=== PATIENT | male | born 1995 | race Caucasian/White ===

== ENCOUNTER 2023-09-22 09:59 | Outpatient (AMB) | payer OTHER, SELFPAY ==
[2023-09-22 10:22] VITALS: BP 116/62; PULSE 75; O2SAT 99; BMI 39.5
--- NOTE | 2023-09-22 10:22 | A.OFFPC_ITS ---
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 Anxiety - Denies current sxs SurgHx: L wrist surgery. FHx: Mom: Ovarian CA, Liver CA. Dad: DM, HTN SocHx: Nonsmoker. EtOH 1 drink per day. 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 1. Little interest or pleasure in doing things: not at all 2. Feeling down, depressed, or hopeless: not at all 3. Trouble falling or staying asleep, or sleeping too much: not at all 4. Feeling tired or having little energy: not at all 5. Poor appetite or overeating: not at all 6. Feeling bad about yourself - or that you are a failure or have let yourself or your family down: not at all 7. Trouble concentrating on things, such as reading the newspaper or watching television: not at all 8. Moving or speaking so slowly that other people could have noticed. Or the opposite - being so fidgety or restless that you have been moving around a lot more than usual: not at all 9. Thoughts that you would be better off or of hurting yourself in some wa y: not at all Total score: 0 Depression Screening Interpretation: Negative Depression Screening Done: Yes 46287 - PHQ-9 Billing: Yes Source: Developed by Drs. Cameron Lebron, Avril Schulz, Kan Arroyo and colleagues, with an educational odalys from [employer]. Thrive Questionnaire Date Thrive assessed: 09/22/23 I am a: Patient What is your living situation today?: I have a steady place to live Within the past 12 months, did the food you bought not last and you didn't have the money to get more?: Never true Within the past 12 months, did you worry whether your food would run out before you got money to buy more?: Never true Do you have trouble paying for medicines?: No Do you have trouble getting transportation to medical appointments?: No Do you have trouble paying your heating and electricity bill?: No Do you have trouble taking care of your child, family member or friend?: No Do you have trouble with day-to-day activities such as bathing, preparing meals, shopping, managing finances, etc.?: No Are you currently unemployed and looking for a job?: No Are you interested in more education?: No THRIVE Score: 0 AUDIT C Alcohol Use Questionnaire (AUDIT-C) 1. How often do you have a drink containing alcohol?: 4 or more times a week 2. How many drinks containing alcohol do you have on a typical day when you are drinking?: 1 or 2 3. How often do you have six or more drinks on one occasion?: Less than monthly Total Score: 5 CÉSAR-7 AMB Questionnaire CÉSAR-7 Date CÉSAR - 7 assessed: 09/22/23 Feeling nervous, anxious, or on edge: 0 = Not at all Not being able to stop or control worryin = Not at all Worrying too much about different things: 0 = Not at all Trouble relaxin = Not at all Being so restless that it is hard to sit still: 0 = Not at all Becoming easily annoyed or irritable: 0 = Not at all Feeling afraid as if something awful might happen: 0 = Not at all Total CÉSAR-7 score (0-4 normal; 5-9 mild; 10-14 moderate; 15-21 severe): 0 Source: Developed by Drs. Cameron Lebron, Avril Schulz, Kan Arroyo and colleagues, with an educational odalys from [employer]. CÉSAR-7 Assessment Billing CÉSAR-7 Assessment Tool: CÉSAR-7 Assessment 29413 Review of Systems Const Denies chills, Denies fatigue, Denies fever(s), Denies headache(s) and Denies weakness ENT Denies dizziness and Denies headache(s) Card Denies chest pain, Denies lightheadedness, Denies dyspnea and Denies other (Palpitations) Resp Denies cough, Denies dyspnea, Denies wheezing and Denies other ( shortness of breath) Musc Denies numbness and Denies tingling Neuro Denies dizziness, Denies headache(s), Denies numbness, Denies tingling, Denies paresthesias and Denies weakness Psych Denies anxiety and Denies depression Endo Denies fatigue Aller/Immun Denies wheezing Physical exam (Primary Care) Vital Signs: Last Vital Signs Pulse 75 09/22/23 10:22 BP 116/62 09/22/23 10:22 Pulse Ox 99 09/22/23 10:22 Oxygen Delivery Method Room Air 09/22/23 10:22 BMI result Body Mass Index 39.5 Tobacco/Smoking Status: Tobacco use Status Tobacco use date assessed 09/22/23 09/22/23 10:38 Patient Tobacco Use Status Never used Tobacco 09/22/23 10:38 e-Cigarette/Vaping Use Never Used 09/22/23 10:38 PHQ-9: PHQ-9 Score PHQ-9: Total score 0 09/22/23 11:11 Depression Screening Interpretation: Negative Thrive Assessment: Date of Thrive Assessment Date Thrive assessed 09/22/23 09/22/23 10:38 Const General: no acute distress and well developed Nutritional Appearance: well nourished Orientation/consciousness: patient oriented x3 HENMT Head: Yes normocephalic and Yes atraumatic Eyes General: appearance normal, both eyes and all related structures Pupils: Equal, round and reactive pupils present EOM: EOMs intact bilaterally Resp Effort & Inspection: normal respiratory effort Auscultation: clear to auscultation bilaterally Cardio Rate: regular rate Rhythm: regular rhythm Heart sounds: S1 normal heart sound present, S2 normal heart sound present, no gallops, no murmurs and no rubs Neuro General: patient oriented x3 and gait normal Cranial nerves: Yes Equal, round and reactive pupils present Psych Affect: normal affect Assessment and Plan Assessment & Plan (1) Pelvic pain in male: Code(s): R10.2 - Pelvic and perineal pain Plan: Pelvic?pain?with?numbness?of?genitals Unclear?cause. Patient?recounts?workup?including?an?MRI?in?[facility]?[place]. I?do?not?have?his?prior?records?yet. Will?refer?him?to?Urology (2) Depression with anxiety: Code(s): F41.8 - Other specified anxiety disorders Plan: History?of?anxiety?and?depression.??He?denies?current?symptoms. (3) History of epilepsy: Code(s): Z86.69 - Personal history of other diseases of the nervous system and sense organs Plan: No?seizures?since?29/03?and?says?he?was?only?on?antiseizure?medications?briefly (4) Laboratory exam ordered as part of routine general medical examination: Code(s): Z00.00 - Encounter for general adult medical examination without abnormal findings Plan: Check?labs Orders: Orders Comprehensive [place]. Panel Fast Today Z00.00 - Encounter for general adult medical examination without abnormal findings TSH reflex Free T4 Today Z00.00 - Encounter for general adult medical examination without abnormal findings CT NG by PCR Today Z11.3 - Encounter for screening for infections with a predominantly sexual mode of transmission HIV Ab/Ag Today Z11.3 - Encounter for screening for infections with a predominantly sexual mode of transmission Hepatitis B,C Profile Today Z11.3 - Encounter for screening for infections with a predominantly sexual mode of transmission Complete Blood Count Auto Diff Today Z00.00 - Encounter for general adult medic al examination without abnormal findings Microalbumin, Random (w Creat) Today I10 - Essential (primary) hypertension UA and rflx microscopic Today Z00.00 - Encounter for general adult medical examination without abnormal findings Lipid Panel Today Z00.00 - Encounter for general adult medical examination without abnormal findings Syphilis Screen Today Z11.3 - Encounter for screening for infections with a predominantly sexual mode of transmission Coding Level of Care Code New Pt Level 3 (29453) Diagnoses Pelvic pain in male R10.2 Depression with anxiety F41.8 History of epilepsy Z86.69 Laboratory exam ordered as part of routine general medical examination Z00.00 Additional Codes CÉSAR-7 Assessment Billing - CÉSAR-7 Assessment Tool: CÉSAR-7 Assessment 25028 ([id number])
== END 2023-09-22 11:30 | disposition home or self-care (01) ==
PROVIDERS: Visit Provider Family Medicine
DX: R10.2 Pelvic and perineal pain (principal); F41.8 Other specified anxiety disorders; Z86.69 Personal history of other diseases of the nervous system and sense organs
CPT/HCPCS: 99203

== ENCOUNTER 2024-04-30 09:01 | Outpatient (REF) | payer OTHER, SELFPAY ==
[2024-04-30 11:31] LABS: Appearance Urine Clear; Color Urine Yellow; Glucose Urine UA Negative (Negative); Leukocyte Esterase Urine Negative (Negative); Nitrite Urine Negative (Negative); PH 6.5 (5.0-9.0); Specific Gravity - Urine 1.015 (1.005-1.025); Urine Blood Negative (Negative); Urine Ketones 15 mg/dL (Negative); Urine Protein Negative (Neg-Trace)
[2024-04-30 11:35] LABS: MANUAL DIFF FLAG NO
[2024-04-30 11:39] LABS: Basophils Percent Auto 0.4 % (0-2); Eosinophils Absolute Auto 0.1 X10*3/uL (0.0-0.4); Eosinophils Percent Auto 1.7 % (0-4); Hematocrit 47.1 % (42.0-52.0); Hemoglobin 15.9 g/dl (14.0-18.0); Imm Gran Abs Auto 0.02 X10*3/uL (0.00-0.03); Imm Gran Pct Auto 0.4 % (0.0-0.4); Lymphocytes Absolute Auto 1.6 X10*3/uL (1.2-4.9); Lymphocytes Percent Auto 29.3 % (20-40); Mean Corpuscular HGB Conc 33.8 g/dl (31.0-36.0); Mean Corpuscular Volume 85.8 fL (80.0-98.0); Monocytes Absolute Auto 0.4 X10*3/uL (0.1-1.2); Monocytes Percent Auto 7.3 % (2-11); Neutrophils Absolute Auto 3.3 x10*3/uL (2.0-8.3); Neutrophils Percent Auto 60.9 % (45-73); Platelet Count 246 X10*3/uL (160-400); Red Blood Count 5.49 X10*6/uL (4.60-5.80); Red Cell Distribution Width 12.5 % (11.0-16.0); White Blood Count 5.3 X10*3/uL (4.8-10.8)
[2024-04-30 12:07] LABS: Syphilis Screen Nonreactive (Nonreactive)
[2024-04-30 12:10] LABS: HBS Num1 0.44 mIU/mL (0-7.99); HBsAGNum1 0.33 S/CO (0.00-0.99); HIV AB/AG Nonreactive (Nonreactive); HIV Num 1 0.11 S/CO (0.00-0.99); Hepatitis B Core Antibody Nonreactive (Nonreactive); Hepatitis B Surface Antigen Negative (Negative); ~HepC Num1 0.07 S/CO (0.00-0.79); ~Hepatitis B Surface Antibody NONREACTIVE (Nonreactive); ~Hepatitis C Antibody Nonreactive (Nonreactive)
[2024-04-30 12:21] LABS: Microalbumin Urine < 5.0 mg/L
[2024-04-30 12:27] LABS: Alanine Aminotransferase 53 U/L (0-40); Albumin Level 4.7 g/dL (3.5-5.0); Alkaline Phosphatase 47 U/L (39-117); Anion Gap 10 (12-20); Aspartate Amino Transferase 27 U/L (5-37); Bilirubin Total 0.4 mg/dL (0.0-1.0); Blood Urea Nitrogen 13 mg/dL (9-16); Calcium 9.3 mg/dL (8.4-10.2); Carbon Dioxide 29 mmol/L (22-29); Chloride 103 mmol/L (96-108); Cholesterol 121 mg/dL (<200); Estimated Glomerular Filt Rate > 60; Glucose Fasting 87 mg/dL (60-99); HDL Cholesterol 35 mg/dL (>40); LDL Cholesterol Calculated 66 mg/dL (<100); Potassium 3.9 mmol/L (3.3-5.1); Sodium 138 mmol/L (135-145); Total Protein 7.4 g/dL (6.5-8.0); Triglycerides 100 mg/dL (<150)
[2024-04-30 12:42] LABS: TSH reflex Free T4 0.54 uIU/mL (0.32-4.0)
== END 2024-04-30 09:02 | disposition home or self-care (01) ==
LOC: HO.WFDLDS 09:01
PROVIDERS: Visit Provider Family Medicine
DX: Z00.00 Encounter for general adult medical examination without abnormal findings (principal); I10 Essential (primary) hypertension; Z11.3 Encounter for screening for infections with a predominantly sexual mode of transmission
CPT/HCPCS: 36415; 80053; 80061; 81003; 82043; 82570; 84443; 85025; 86704; 86706; 86780; 86803; 87340; 87389

== ENCOUNTER 2024-05-14 10:53 | Outpatient (AMB) | payer OTHER, SELFPAY ==
--- NOTE | 2024-05-14 10:54 | MHC.PC.OV ---
Vital Signs 05/14/24 11:00 Height 6 ft 2.5 in Weight 308 lb 2 oz BMI 39.0 BP 136/79 Blood Pressure Location Rt radial Position Sitting Respiration 16 Pulse 77 Pulse Source Pulse Oximeter Temp 98.0 F Temp Source Oral Pulse Oximetry (%) 95 Oxygen Delivery Method Room Air Intake Visit Reasons: CPE with f/u labs and health maint. 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 30 mins HPI Details 28 y/o male presents for a CPE with f/u labs and health maint. Labs drawn 04/30/24. Reviewed labs with pt. Elevated ALT of 53. Triglycerides 100. TC 121. LDL 66. HDL low at 35. Hx of epilepsy. Notes ongoing dizziness - some days seem to be better than others. Notes some cerumen impaction. Reports some LLQ abd. pain that has been bothering him for years. 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 1. Little interest or pleasure in doing things: not at all 2. Feeling down, depressed, or hopeless: not at all 3. Trouble falling or staying asleep, or sleeping too much: not at all 4. Feeling tired or having little energy: not at all 5. Poor appetite or overeating: not at all 6. Feeling bad about yourself - or that you are a failure or have let yourself or your family down: not at all 7. Trouble concentrating on things, such as reading the newspaper or watching television: not at all 8. Moving or speaking so slowly that other people could have noticed. Or the opposite - being so fidgety or restless that you have been moving around a lot more than usual: not at all 9. Thoughts that you would be better off or of hurting yourself in some way: not at all Total score: 0 Depression Screening Interpretation: Negative Depression Screening Done: Yes 40287 - PHQ-9 Billing: Yes Source: Developed by Drs. Cameron Lebron, Avril Schulz, Kan Arroyo and colleagues, with an educational odalys from [employer]. Thrive Questionnaire Date Thrive assessed: 05/14/24 I am a: Patient What is your living situation today?: I have a steady place to live Within the past 12 months, did the food you bought not last and you didn't have the money to get more?: Never true Within the past 12 months, did you worry whether your food would run out before you got money to buy more?: Never true Do you have trouble paying for medicines?: No Do you have trouble getting transportation to medical appointments?: No Do you have trouble paying your heating and electricity bill?: No Do you have trouble taking care of your child, family member or friend?: No Do you have trouble with day-to-day activities such as bathing, preparing meals, shopping, managing finances, etc.?: No Are you currently unemployed and looking for a job?: No Are you interested in more education?: No Please select the resources that you would like help with: None Currently or been in a relationship where the following occur: No concerns reported THRIVE Score: 0 AUDIT C Alcohol Use Questionnaire (AUDIT-C) 1. How often do you have a drink containing alcohol?: Monthly or less 2. How many drinks containing alcohol do you have on a typical day when you are drinking?: 1 or 2 3. How often do you have six or more drinks on one occasion?: Less than monthly Total Score: 2 CÉSAR-7 AMB Questionnaire CÉSAR-7 Date CÉSAR - 7 assessed: 05/14/24 Feeling nervous, anxious, or on edge: 0 = Not at all Not being able to stop or control worryin = Not at all Worrying too much about different things: 0 = Not at all Trouble relaxin = Not at all Being so restless that it is hard to sit still: 0 = Not at all Becoming easily annoyed or irritable: 0 = Not at all Feeling afraid as if something awful might happen: 0 = Not at all Total CÉSAR-7 score (0-4 normal; 5-9 mild; 10-14 moderate; 15-21 severe): 0 Source: Developed by Drs. Cameron Lebron, Avril Schulz, Kan Arroyo and colleagues, with an educational odalys from [employer]. CÉSAR-7 Assessment Billing CÉSAR-7 Assessment Tool: CÉSAR-7 Assessment 40743 Review of Systems Const Denies chills, Denies fatigue, Denies fever(s), Denies headache(s) and Denies weakness Eyes Denies change in vision ENT Denies dizziness, Denies headache(s), Denies hearing loss, Denies nasal congestion, Denies sinus pain, Denies sinus pressure and Denies sore throat Card Denies chest pain, Denies lightheadedness, Denies dyspnea and Denies other (palpitations) Resp Denies cough, Denies dyspnea and Denies wheezing GI Reports abdominal pain, Denies melena, Denies hematochezia, Denies change in bowel habits, Denies dyspepsia and Denies nausea Denies hematuria and Denies dysuria Musc Denies abnormal gait, Denies myalgias, Denies arthralgias, Denies numbness and Denies tingling Skin/Breast Denies rash, Denies unusual bruising and Denies wounds Neuro Denies abnormal gait, Denies dizziness, Denies headache(s), Denies memory loss, Denies numbness, Denies Sensory deficit (Neuro), Denies tingling and Denies weakness Psych Denies anxiety, Denies depression and Denies memory loss Endo Denies cold intolerance, Denies fatigue, Denies heat intolerance, Denies polydipsia and Denies polyuria Jesus/Lymph Denies easy bleeding and Denies easy bruising Aller/Immun Denies wheezing Physical exam (Primary Care) Vital Signs: Last Vital Signs Temp 98.0 F 05/14/24 11:00 Pulse 77 05/14/24 11:00 Resp 16 05/14/24 11:00 BP 136/79 05/14/24 11:00 Pulse Ox 95 05/14/24 11:00 Oxygen Delivery Method Room Air 05/14/24 11:00 BMI result Body Mass Index 39.0 Tobacco/Smoking Status: Tobacco use Status Tobacco use date assessed 05/14/24 05/14/24 11:00 Patient Tobacco Use Status Never used Tobacco 05/14/24 10:58 e-Cigarette/Vaping Use Never Used 05/14/24 10:58 PHQ-9: PHQ-9 Score PHQ-9: Total score 0 05/14/24 10:58 Depression Screening Interpretation: Negative Thrive Assessment: Date of Thrive Assessment Date Thrive assessed 05/14/24 05/14/24 10:58 Currently or been in a relationship where the following occur: No concerns reported Const General: no acute distress, well developed, alert and awake Nutritional Appearance: well nourished Orientation/consciousness: patient oriented x3 HENMT Head: Yes normocephalic and Yes atraumatic Ears: hearing grossly normal bilaterally and TM's normal bilaterally General nose exam: Normal external nose present and Normal nares present Mouth: Normal oral and palatal mucosa present and moist mucous membranes Teeth and gingiva: dentition normal Throat: Yes posterior oropharynx normal Eyes General: appearance normal, both eyes and all related structures Pupils: Equal, round and reactive pupils present and Pupil accommodation reflex normal EOM: EOMs intact bilaterally Neck Neck: Yes normal visual inspection, Yes no lymphadenopathy and Yes trachea midline Thyroid: Thyroid normal Carotids: no bruits Lymphatic: no lymphadenopathy noted Chest Chest palpation & inspection: normal inspection of the chest Resp Effort & Inspection: normal respiratory effort Auscultation: clear to auscultation bilaterally Cardio Rate: regular rate Rhythm: regular rhythm Heart sounds: S1 normal heart sound present, S2 normal heart sound present, no gallops, no murmurs and no rubs Bruits: no abdominal aortic bruits and no carotid bruits GI Palpation (GI): No Abdominal aortic bruit present, Soft to palpation, nontender, No hepatosplenomegaly present and No Rebound tenderness present Auscultation: normal bowel sounds General: Yes no CVA tenderness Back/Spine/Pelvis Back: no CVA tenderness Cervical Spine: cervical ROM normal and No Cervical spine tenderness Thoracic/Lumbar Spine: thoraco-lumbar ROM normal, No pain with thoraco-lumbar ROM, No thoracic spinal tenderness and No lumbar spinal tenderness Skin Lesions: no lesions Rashes: no rashes Trauma: no lacerations or abrasions Wounds: no wounds Nails: normal Neuro General: patient oriented x3 Cranial nerves: Yes Equal, round and reactive pupils present Cognition (Neuro): normal cognition Gait exam (Neuro): Normal gait present Motor exam (neuro): 5/5 motor strength present throughout Sensory Exam: No Sensory deficit (Neuro) Deep tendon reflexes (DTR's): Right patellar reflex intensity grade: 2+ and Left patellar reflex intensity grade: 2+ Extrem General: Yes normal to inspection and No edema Psych Appearance: grossly normal Affect: normal affect Attitude: cooperative Thought process: Normal thought process present Coding Level of Care Code Est Pt Level 3 (87308) Est Pt Prev Care 18-39y(75061) Diagnoses Adult general medical exam Z00.00 Dizziness R42 History of epilepsy Z86.69 Cerumen impaction H61.20 LLQ abdominal pain R10.32 Elevated liver enzymes R74.8 Depression with anxiety F41.8 Additional Codes CÉSAR-7 Assessment Billing - CÉSAR-7 Assessment Tool: CÉSAR-7 Assessment 19830 ([id number]) PHQ-9 - 91331 - PHQ-9 Billing: Yes ([id number]) Assessment & Plan Assessment & Plan (1) Adult general medical exam: Code(s): Z00.00 - Encounter for general adult medical examination without abnormal findings Category: Medical Plan: 28-year-old?male?presents?for?complete?physical?exam Stable (2) Dizziness: Code(s): R42 - Dizziness and giddiness Category: Medical Plan: Dizziness?or?disequilibrium?with??fogginess? Workup?at?the?ED?was?unremarkable.??Patient?does?have?a?history?epilepsy Referred?to?neurology (3) History of epilepsy: Code(s): Z86.69 - Personal history of other diseases of the nervous system and sense organs Category: Medical Plan: I?still?have?not?received?prior?records. Given?that?patient?also?has?symptoms?described?as?a?form?dizziness,?referred?him?to?Neurology (4) Cerumen impaction: Code(s): H61.20 - Impacted cerumen, unspecified ear Category: Medical Plan: TMs?clear?after?irrigation He?will?let?me?know?if?this?makes?any?changes?to?his?sensation?of??dizziness? (5) LLQ abdominal pain: Code(s): R10.32 - Left lower quadrant pain Category: Medical Plan: Left?lower?quadrant?discomfort. Increase?hydration Will?give?him?a?short?course?MiraLax (6) Elevated liver enzymes: Code(s): R74.8 - Abnormal levels of other serum enzymes Category: Medical Plan: Mildly?elevated?ALT Will?recheck?this?next?lab?draw We?discussed?that?if?this?is?the?same?or?higher,?would?check?an?ultrasound Increase?hydration Work?weight?loss (7) Depression with anxiety: Code(s): F41.8 - Other specified anxiety disorders Category: Medical Plan: Pt feels he is stable and declines therapist or med at this time Orders: Orders Comprehensive Met. Panel Today R74.8 - Abnormal levels of other serum enzymes Referrals Neurology Referral R42 - Dizziness and giddiness, Z86.69 - Personal history of other diseases of the nervous system and sense organs Medications: New polyethylene glycol 3350 (Miralax) 17 grams PO DAILY 14 days 14 ea 0RF
[2024-05-14 11:00] VITALS: BP 136/79; PULSE 77; RESP 16; TEMP 36.7; O2SAT 95; BMI 39.0
--- OUTSIDE RECORDS SUMMARY | 2024-05-14 11:47 | XMS_ITS ---
Author Name [facility] Organization Unknown History of Medication Use Medication Directions Dispensed Refills Start Date End Date Stat No known medications No known medications active Problems Problem Status Onset Date Problem Type Date of Resoluti on Source D[facility]
--- OUTSIDE RECORDS SUMMARY | 2024-05-14 11:47 | XMS_ITS | Clinical Summary ---
Author Organization [facility] Address [address] [place] [address] Care Team Providers Care Emerging Solutions Executive Name Role Phone Christopher Wilkerson MD Primary Care Provider Allergies No known active allergies Medications No known medications Encounters Date Type Department Care Team Description 05/01/2024 8:15 AM EST Office Visit [facility] [address] [phone] Aryan Ramesh MD de Villier, Daryl T, PA Dizziness (Primary Dx) 05/01/2024 Scanned Document [address] [place] [phone] Provider, Generic 05/01/2024 Travel from Last 3 Months Social History Tobacco Use Types Packs/Day Years Used Date Smoking Tobacco: Never Smokeless Tobacco: Never Tobacco Cessation:Counseling Given: Not Answered Sex and Gender Information Value Date Recorded Sex Assigned at Not on file Gender Identity Not on file Sexual Orientation Not on file Last Filed Vital Signs Vital Sign Reading Time Taken Comments Blood Pressure 127/82 05/01/2024 8:30 AM EST Pulse 74 05/01/2024 8:30 AM EST Temperature 36.7 ??C (98 ??F) 05/01/2024 8:30 AM EST Respiratory Rate 18 05/01/2024 8:30 AM EST Oxygen Saturation 95% 05/01/2024 8:45 AM EST Inhaled Oxygen Concentration - - Weight 136 kg (300 lb) 05/01/2024 8:30 AM EST Height 188 cm (6' 2 ) 05/01/2024 8:30 AM EST Body Mass Index 38.52 05/01/2024 8:30 AM EST Plan of Treatment Health Maintenance Due Date Last Done Comments Hepatitis C Virus Screening 1993 HIV Screening 2006 DTaP/Tdap/Td Vaccines (1 - Tdap) 2012 Hepatitis B Vaccines (1 of 3 - 19+ 3-dose series) 2012 Influenza Vaccine 11/09/2023 COVID-19 Vaccine (1 - 2023-2 5 season) 2023 HPV Vaccines Aged Out No longer eligi ble based on patient's age to complete this topic Pneumococcal Vaccine: Pediat debby (0-5 Years) and At-Risk Patients (6 to 49 Years) Aged Out No longer eligible b ased on patient's age to complete this topic Procedures Procedure Name Priority Date/Time Associated Diagnosis Comments ECG 12-LEAD Routine 05/01/2024 8:59 AM EST Dizziness from Last 3 Months Results * ECG 12 lead (05/01/2024 8:59 AM EST) 05/01/2024 8:59 AM EST Impressions Edith Marin MA - 05/01/2024 8:59 AM EST The EKG was independently reviewed by myself showing: Rate: 65 BPM. Rhythm: NSR. No ST elevations, acute ischemic findings, or acute arrhythmia. No prior EKG for comparison. Cedrick Ang ECG ORDERABLES from Last 3 Months Care Teams Emerging Solutions Executive Relationship Specialty Start Date End Date Christopher Wilkerson MD [address] [place] [address] Dr Yajaira [place] [phone] PCP - General Family Medicine 05/01/24
--- OUTSIDE RECORDS SUMMARY | 2024-05-14 11:47 | XMS_ITS | Referral Summary ---
Author Organization [facility] Address [address] [place] [address] Care Team Providers Care Corporate Lawyer Name Role Phone Jeferson Higgins MD Primary Care Provider [phone] Source Comments Please note that some or all of the patient's information could have additional privacy protections. State laws allow health care providers to render certain types of treatment to minors without parental consent. Please do not assume that this information can be shared solely by obtaining just the consent of the patient's parent/guardian. Please determine if all or part of the patient's care was rendered without parent/guardian involvement. And, if so, obtain the minor's consent prior to disclosure.[facility] Social History Tobacco Use Types Packs/Day Years Used Date Smoking Tobacco: Never Assessed Sex and Gender Information Value Date Recorded Sex Assigned at Not on file Legal Sex Male 2:23 AM EST Gender Identity Not on file Sexual Orientation Not on file Plan of Treatment Not on file Insurance [employer] Care Teams Corporate Lawyer Relationship Specialty Start Date End Date Jeferson Higgins MD [facility] [place] [address] PCP - General 07/09/12
--- OUTSIDE RECORDS SUMMARY | 2024-05-14 11:47 | XMS_ITS | Encounter Summary ---
Author Organization [facility] Address [address] [place] [address] Care Team Providers Care Cotton Breeder Name Role Phone Christopher Wilkerson MD Primary Care Provider [phone] Reason for Visit * Reason Comments Dizziness Intermittent dizzine ss x a week. Encounter Details Date Type Department Care Team (Late st Contact Info) Description 05/01/2024 8:15 AM EST Office Visit [facility] [address] [phone] Aryan Ramesh MD [address] [place] [phone] Cedrick Yeh, PA [address] [place] [phone] Dizziness (Primary Dx) Social History Tobacco Use Types Packs/Day Years Used Date Smoking Tobacco: Never Smokeless Tobacco: Never Tobacco Cessation:Counseling Given: Not Answered Sex and Gender Information Value Date Recorded Sex Assigned at Not on file Gender Identity Not on file Sexual Orientation Not on file documented as of this encounter Last Filed Vital Signs Vital Sign Reading [...] Mass Index 38.52 05/01/2024 8:30 AM EST documented in this encounter Patient Instructions * Attachments The following attachments cannot be sent through Care Everywhere. * Dizziness (Cuban) documented in this encounter Progress Notes * JUAN LUIS Peng - 05/01/2024 8:39 AM EST Assessment & Plan Tim was seen today for dizziness. Diagnoses and all orders for this visit: Dizziness Medical Decision Making: Patient presenting with chief complaint of dizziness. Orthostatic vitals checked but normal. Does not sound like peripheral vertigo. Patient noted to have bilateral cerumen impaction, but declined earwax removal. Nonetheless doubt acute otitis media or vestibular dysfunction. Normal neuro exam and doubt acute intracranial pathology contributing to dizziness. EKG also normal. Patient had labs ordered by PCP with scheduled follow-up in 2 weeks. That timeframe seems appropriate for outpatient follow-up. Reviewed the signs and symptoms that warrant emergent medical attention. Clinical reference/patient instructions provided. Patient verbalized understanding and agreed with the plan. All questions and concerns were answered. Subjective HPI: Tim Borrego is a 28 y.o. male presenting with chief complaint of dizziness. Intermittent over the past week. Describes wooziness or occasional unsteadiness on feet. Denies sensation of room spinning. Not provoked by standing or sitting up suddenly. Denies headache, numbness, weakness, slurred speech, or ataxia. Family history of hypertension, and bough blood pressure cuff, noting a few systolic readings of 130 or 140. Not on antihypertensives. Grandfather had a few heart attacks, but no other significant family history of cardiac disease. Denies chest pain, palpitations, shortness of breath. Denies recent illness. Denies ear pain, tinnitus, or hearing changes. Otherwise healthy and not taking daily medications. Has scheduled follow-up with PCP in 2 weeks, and had labs drawn yesterday before that appointment. No other acute complaints. History provided by patient. No past medical history on file. No past surgical history on file. No family history on file. Social History Tobacco Use Smoking status: Never Smokeless tobacco: Never Review of Systems All other systems reviewed and negative Objective Vitals: 05/01/24 0845 BP: Pulse: Resp: Temp: SpO2: 95% Weight: Height: Vital signs reviewed Physical Exam Constitutional: General: He is not in acute distress. Appearance: Normal appearance. He is not ill-appearing. HENT: Head: Normocephalic and atraumatic. Ears: Comments: Cerumen impaction bilaterally Mouth/Throat: Mouth: Mucous membranes are moist. Pharynx: Oropharynx is clear. Eyes: General: Vision grossly intact. Extraocular Movements: Extraocular movements intact. Pupils: Pupils are equal, round, and reactive to light. Comments: No nystagmus with extraocular movements. Cardiovascular: Rate and Rhythm: Normal rate and regular rhythm. Pulses: Normal pulses. Heart sounds: Normal heart sounds. Pulmonary: Effort: Pulmonary effort is normal. No respiratory distress. Breath sounds: Normal breath sounds. No wheezing, rhonchi or rales. Abdominal: General: There is no distension. Musculoskeletal: General: Normal range of motion. Cervical back: Normal range of motion. Skin: General: Skin is warm and dry. Neurological: General: No focal deficit present. Mental Status: He is alert and oriented to person, place, and time. Cranial Nerves: No cranial nerve deficit. Sensory: No sensory deficit. Motor: No weakness. Gait: Gait normal. JUAN LUIS Peng 05/01/24 8:48 AM documented in this encounter Plan of Treatment Not on file documented as of this encounter Procedures Procedure Name Priority Date/Time Associated Diagnosis Comments ECG 12-LEAD Routine 05/01/2024 8:59 AM EST Dizziness documented in this encounter Results * ECG 12 lead (05/01/2024 8:59 AM EST) 05/01/2024 8:59 AM EST Impressions Edith Marin MA - 05/01/2024 8:59 AM EST The EKG was independently reviewed by myself showing: Rate: 65 BPM. Rhythm: NSR. No ST elevations, acute ischemic findings, or acute arrhythmia. No prior EKG for comparison. Cedrick Ang ECG ORDERABLES documented in this encounter Visit Diagnoses Diagnosis Dizziness- Primary Dizziness and giddiness documented in this encounter Care Teams Cotton Breeder Relationship Specialty Start Date End Date Christopher Wilkerson MD [address] [place] [address] [place] [address] PCP - General Family Medicine 05/01/24 documented as of this encounter
--- OUTSIDE RECORDS SUMMARY | 2024-05-14 11:47 | XMS_ITS | Encounter Summary ---
Author Organization [facility] Address [address] [place] [address] Care Team Providers Care Research Center Director Name Role Phone Christopher Wilkerson MD Primary Care Provider [phone] Encounter Details Date Type Department Care Team (Late st Contact Info) Description 05/01/2024 Scanned Document [address] [phone] Provider, Generic Social History Tobacco Use Types Packs/Day Years Used Date Smoking Tobacco: Never Smokeless Tobacco: Never Sex and Gender Information Value Date Recorded Sex Assigned at Not on file Gender Identity Not on file Sexual Orientation Not on file documented as of this encounter Plan of Treatment Not on file documented as of this encounter Visit Diagnoses Not on filedocumented in this encounter Care Teams Research Center Director Relationship Specialty Start Date End Date Christopher Wilkerson MD [address] [place] [address] [place] [address] PCP - General Family Medicine 05/01/24 documented as of this encounter
--- OUTSIDE RECORDS SUMMARY | 2024-05-14 11:47 | XMS_ITS | Encounter Summary ---
Author Organization [facility] Address [address] [place] [address] Care Team Providers Care Energy Efficient Site Manager Name Role Phone Christopher Wilkerson MD Primary Care Provider [phone] Encounter Details Date Type Department Care Team (Latest Contact Info) Description 05/01/2024 Travel Social History Tobacco Use Types Packs/Day Years [...] on filedocumented in this encounter Care Teams Energy Efficient Site Manager Relationship Specialty Start Date End Date Christopher Wilkerson MD [address] [place] [address] [place] [address] PCP - General Family Medicine 05/01/24 documented as of this encounter
--- OUTSIDE RECORDS SUMMARY | 2024-05-14 11:47 | XMS_ITS | Clinical Summary ---
Author Organization [facility] Address [address] [place] [address] Care Team Providers Care Ground Crewman Mission Support Name Role Phone Jeferson Higgins MD Primary Care Provider [phone] Source Comments Please note that some or [...] so, obtain the minor's consent prior to disclosure.[facility] Social History Tobacco Use Types Packs/Day Years Used Date Smoking Tobacco: Never Assessed Sex and Gender Information Value Date Recorded Sex Assigned at Not on file Legal Sex Male 2:23 AM EST Gender Identity Not on file Sexual Orientation Not on file Plan of Treatment Not on file Insurance [employer] Care Teams Ground Crewman Mission Support Relationship Specialty Start Date End Date Jeferson Higgins MD [facility] [place] [address] PCP - General 07/09/12
== END 2024-05-14 11:42 | disposition home or self-care (01) ==
PROVIDERS: PCP Family Medicine; Visit Provider Family Medicine
DX: Z00.00 Encounter for general adult medical examination without abnormal findings (principal); R42 Dizziness and giddiness; Z86.69 Personal history of other diseases of the nervous system and sense organs; H61.23 Impacted cerumen, bilateral; R10.32 Left lower quadrant pain; R74.8 Abnormal levels of other serum enzymes; F41.8 Other specified anxiety disorders

== ENCOUNTER → 2024-05-14 10:53 | Outpatient (BNVA) | payer OTHER, SELFPAY | PROVIDERS: PCP Family Medicine; Visit Provider Family Medicine | DX: Z00.00 Encounter for general adult medical examination without abnormal findings (principal); R42 Dizziness and giddiness; H61.20 Impacted cerumen, unspecified ear; R10.32 Left lower quadrant pain; R74.8 Abnormal levels of other serum enzymes; F41.8 Other specified anxiety disorders; Z86.69 Personal history of other diseases of the nervous system and sense organs | CPT/HCPCS: 96127 ==

== ENCOUNTER 2024-07-12 09:10 | Outpatient (REF) | payer OTHER, SELFPAY ==
--- OUTSIDE RECORDS SUMMARY | 2024-07-12 09:51 | XMS_ITS | Encounter Summary ---
Author Organization [facility] Address [address] [place] [address] Care Team Providers Care Card Table Attendant Name Role Phone Christopher Wilkerson MD Primary Care Provider [phone]- [phone] Encounter Details Date Type Department Care Team (Late st Contact Info) Description 05/01/2024 Scanned Document [address] [phone] Provider, Generic Social History Tobacco Use Types [...] on filedocumented in this encounter Care Teams Card Table Attendant Relationship Specialty Start Date End Date Christopher Wilkerson MD [address] [place] [address] [place] [address] PCP - General Family Medicine 05/01/24 documented as of this encounter
--- OUTSIDE RECORDS SUMMARY | 2024-07-12 09:51 | XMS_ITS | Clinical Summary ---
Author Organization [facility] Address [address] [place] [address] Care Team Providers Care Fur Pointer Name Role Phone Christopher Wilkerson MD Primary Care Provider Allergies No known active allergies Medications No known medications Encounters Date Type Department Care Team Description 05/01/2024 8:15 AM EST Office Visit [facility] [address] [phone] Aryan Ramesh MD de Villier, Daryl, PA-C Dizziness (Primary Dx) 05/01/2024 Scanned Document [address] [place] [phone] Provider, Lauren 05/01/2024 Travel from Last 3 Months Social [...] arrhythmia. No prior EKG for comparison. Cedrick Yeh PA-C ECG ORDERABLES from Last 3 Months Care Teams Fur Pointer Relationship Specialty Start Date End Date Christopher Wilkerson MD [address] [place] [address] Dr Yajaira [place] [phone] PCP - General Family Medicine 05/01/24
--- OUTSIDE RECORDS SUMMARY | 2024-07-12 09:52 | XMS_ITS | Clinical Summary ---
Author Organization [facility] Address [address] [place] [address] Care Team Providers Care Automotive Service Management Teacher Name Role Phone Jeferson Higgins MD Primary Care Provider [phone] Source Comments Please note that some or [...] so, obtain the minor's consent prior to disclosure.[facility] Social History Tobacco Use Types Packs/Day Years Used Date Smoking Tobacco: Never Assessed Sex and Gender Information Value Date Recorded Sex Assigned at Not on file Legal Sex Male 2:23 AM EST Gender Identity Not on file Sexual Orientation Not on file Plan of Treatment Not on file Insurance [employer] Care Teams Automotive Service Management Teacher Relationship Specialty Start Date End Date Jeferson Higgins MD [facility] [place] [address] PCP - General 07/09/12
[2024-07-12 12:46] LABS: Alanine Aminotransferase 124 U/L (0-40); Albumin Level 4.5 g/dL (3.5-5.0); Alkaline Phosphatase 53 U/L (39-117); Anion Gap 10 (12-20); Aspartate Amino Transferase 36 U/L (5-37); Bilirubin Total 0.5 mg/dL (0.0-1.0); Blood Urea Nitrogen 11 mg/dL (9-16); Calcium 9.4 mg/dL (8.4-10.2); Carbon Dioxide 27 mmol/L (22-29); Chloride 108 mmol/L (96-108); Estimated Glomerular Filt Rate > 60; Glucose Random 96 mg/dL (60-115); Potassium 4.1 mmol/L (3.3-5.1); Sodium 141 mmol/L (135-145); Total Protein 6.8 g/dL (6.5-8.0)
== END 2024-07-12 09:11 | disposition home or self-care (01) ==
LOC: HO.WFDLDS 09:10
PROVIDERS: Visit Provider Family Medicine
DX: R74.8 Abnormal levels of other serum enzymes (principal)
CPT/HCPCS: 36415; 80053

== ENCOUNTER 2024-07-23 10:28 | Outpatient (AMB) | payer OTHER, SELFPAY ==
--- NOTE | 2024-07-23 10:44 | MHC.PC.OV ---
Vital Signs 07/23/24 10:45 Height 6 ft 2.5 in Weight 289 lb BMI 36.6 BP 110/80 Blood Pressure Location Rt brachial Position Sitting Respiration 14 Pulse 83 Pulse Source Pulse Oximeter Temp 99.1 F Temp Source Oral Pulse Oximetry (%) 97 Oxygen Delivery Method Room Air Intake Visit Reasons: f/u liver enzymes, labs Intake Note: patient is schedule for lab review with pcp Sheep Farm Manager Required: No Allergies No Known Allergies Allergy (Verified 07/23/24 10:45) Tobacco use date assessed: 05/14/24 Dental Screening Dental Screen Date: 05/14/24 HPI f/u liver enzymes, labs HPI Details 28 y/o male presents to f/u elevated liver enzymes, labs. Labs drawn 07/12/24. Reviewed labs with pt. Elevated ALT of 124. 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 Cognitive needs: No Hearing needs: No Vision needs: No Questionnaire Thrive Questionnaire Date Thrive assessed: 05/14/24 I am a: Patient What is your living situation today?: I have a steady place to live Within the past 12 months, did the food you bought not last and you didn't have the money to get more?: Never true Within the past 12 months, did you worry whether your food would run out before you got money to buy more?: Never true Do you have trouble paying for medicines?: No Do you have trouble getting transportation to medical appointments?: No Do you have trouble paying your heating and electricity bill?: No Do you have trouble taking care of your child, family member or friend?: No Do you have trouble with day-to-day activities such as bathing, preparing meals, shopping, managing finances, etc.?: No Are you currently unemployed and looking for a job?: No Are you interested in more education?: No Please select the resources that you would like help with: None Currently or been in a relationship where the following occur: No concerns reported THRIVE Score: 0 CÉSAR-7 AMB Questionnaire CÉSAR-7 Date CÉSAR - 7 assessed: 05/14/24 Source: Developed by Drs. Cameron Lebron, Avril Schulz, Kan Arroyo and colleagues, with an educational odalys from [employer]. Review of Systems Const Denies chills, Denies fatigue, Denies fever(s), Denies headache(s) and Denies weakness ENT Denies dizziness and Denies headache(s) Card Denies dyspnea Resp Denies cough, Denies dyspnea, Denies wheezing and Denies other (shortness of breath) Musc Denies numbness and Denies tingling Neuro Denies dizziness, Denies headache(s), Denies numbness, Denies tingling and Denies weakness Psych Denies anxiety and Denies depression Endo Denies fatigue Aller/Immun Denies wheezing Physical exam (Primary Care) Vital Signs: Last Vital Signs Temp 99.1 F 07/23/24 10:45 Pulse 83 07/23/24 10:45 Resp 14 07/23/24 10:45 BP 110/80 07/23/24 10:45 Pulse Ox 97 07/23/24 10:45 Oxygen Delivery Method Room Air 07/23/24 10:45 BMI result Body Mass Index 36.6 Tobacco/Smoking Status: Tobacco use Status Tobacco use date assessed 05/14/24 07/23/24 10:51 Patient Tobacco Use Status Never used Tobacco 07/23/24 10:51 e-Cigarette/Vaping Use Never Used 07/23/24 10:51 Thrive Assessment: Date of Thrive Assessment Date Thrive assessed 05/14/24 07/23/24 10:51 Currently or been in a relationship where the following occur: No concerns reported Const General: well developed; No acute distress Nutritional Appearance: well nourished Orientation/consciousness: patient oriented x3 HENMT Head: Yes normocephalic and Yes atraumatic Eyes General: appearance normal, both eyes and all related structures Pupils: Equal, round and reactive pupils present EOM: EOMs intact bilaterally Resp Effort & Inspection: normal respiratory effort Neuro General: patient oriented x3 and gait normal Cranial nerves: Yes Equal, round and reactive pupils present Psych Affect: normal affect Coding Level of Care Code Est Pt Level 3 (79728) Diagnoses Elevated liver enzymes R74.8 Assessment & Plan Assessment & Plan (1) Elevated liver enzymes: Code(s): R74.8 - Abnormal levels of other serum enzymes Category: Medical Plan: ALT?jaxson?from?53 to 124?in?the?past?3?months Patient?is?significantly?obese.??He?has?had?a?fairly?quick?weight?loss?of?about?20?lb. Will?check?liver?ultrasound Repeat liver?enzyme?labs?prior?to?next?visit Orders: Orders US abdomen flowers w elastography Today R74.8 - Abnormal levels of other serum enzymes Comprehensive Met. Panel Today R74.8 - Abnormal levels of other serum enzymes
[2024-07-23 10:45] VITALS: BP 110/80; PULSE 83; RESP 14; TEMP 37.3; O2SAT 97; BMI 36.6
--- OUTSIDE RECORDS SUMMARY | 2024-07-23 12:35 | XMS_ITS | Clinical Summary ---
Author Organization [facility] Address [address] [place] [address] Care Team Providers Care Recruiting Consultant Name Role Phone Jeferson Higgins MD Primary Care Provider [phone] Source Comments Please note that some or [...] so, obtain the minor's consent prior to disclosure.[facility] Social History Tobacco Use Types Packs/Day Years Used Date Smoking Tobacco: Never Assessed Sex and Gender Information Value Date Recorded Sex Assigned at Not on file Legal Sex Male 2:23 AM EST Gender Identity Not on file Sexual Orientation Not on file Plan of Treatment Not on file Insurance [employer] Care Teams Recruiting Consultant Relationship Specialty Start Date End Date Jeferson Higgins MD [facility] [place] [address] PCP - General 07/09/12
--- OUTSIDE RECORDS SUMMARY | 2024-07-23 12:35 | XMS_ITS | Clinical Summary ---
Author Organization [facility] Address [address] [place] [address] Care Team Providers Care Order Entry Administrator Name Role Phone Christopher Wilkerson MD Primary Care Provider Allergies No known active allergies Medications No known medications Encounters Date Type Department Care Team Description 05/01/2024 8:15 AM EST Office Visit [facility] [address] [phone] Aryan Ramesh MD de Villier, Daryl, PA-C Dizziness (Primary Dx) 05/01/2024 Scanned Document [address] [place] [phone] Provider, Lauren 05/01/2024 Travel from Last 3 [...] ORDERABLES from Last 3 Months Care Teams Order Entry Administrator Relationship Specialty Start Date End Date Christopher Wilkerson MD [address] [place] [address] Dr Yajaira [place] [phone] PCP - General Family Medicine 05/01/24
--- OUTSIDE RECORDS SUMMARY | 2024-07-23 12:35 | XMS_ITS | Encounter Summary ---
Author Organization [facility] Address [address] [place] [address] Care Team Providers Care Implementation Consultant Name Role Phone Christopher Wilkerson MD Primary Care Provider [phone] Encounter Details Date Type Department Care Team (Late st Contact Info) Description 05/01/2024 Scanned Document [address] [phone] Provider, Generic Social History Tobacco Use Types [...] on filedocumented in this encounter Care Teams Implementation Consultant Relationship Specialty Start Date End Date Christopher Wilkerson MD [address] [place] [address] [place] [address] PCP - General Family Medicine 05/01/24 documented as of this encounter
== END 2024-07-23 11:18 | disposition home or self-care (01) ==
LOC: HO.HMCFM 10:28
PROVIDERS: PCP Family Medicine; Visit Provider Family Medicine
DX: R74.8 Abnormal levels of other serum enzymes (principal)

== ENCOUNTER → 2024-07-23 10:28 | Outpatient (BNVA) | payer OTHER, SELFPAY | PROVIDERS: PCP Family Medicine; Visit Provider Family Medicine ==

== ENCOUNTER 2024-09-04 10:32 | Outpatient (REF) | payer OTHER, SELFPAY ==
--- NOTE | ~2024-09-04 | US_ITS ---
EXAMINATION: US ABDOMEN LIMITED WITH LIVER ELASTOGRAPHY HISTORY: R74.8 - Abnormal levels of other serum enzymes TECHNIQUE: Real-time grayscale ultrasound imaging of the right upper quadrant was performed and images were reviewed. COMPARISON: There are no prior studies for comparison. FINDINGS: Liver: The right lobe of the liver measures 14.4 cm in size. The left lobe of the liver measures 9.1 cm in size. The liver demonstrates increased echotexture, consistent with steatosis. No focal mass or intrahepatic biliary ductal dilatation is identified. There is normal hepatopedal flow in the portal vein. Ultrasound elastography of the liver was performed with 10 separate measurements of the liver parenchyma with the patient in the supine position. Measurements were obtained approximately 2 cm below Martínez's capsule and perpendicular to the capsule. Images are of satisfactory quality. The median shear wave velocity is 1.14 m/s. The interquartile range/median (IQR/median) is 0.18. Gallbladder and biliary tree: Multiple polyps are seen in the gallbladder measuring up to 7 mm in size. In addition, there is ring down artifact from the gallbladder wall consistent with adenomyomatosis. There is no evidence of cholelithiasis. There is no wall thickening or pericholecystic fluid. There is no sonographic Parra sign. The common bile duct is normal in caliber measuring 4 mm. Right Kidney: The right kidney measures 10.9 cm in length. The right kidney is unremarkable, without evidence of masses, hydronephrosis, or calculi. Pancreas: The pancreatic head, neck, and body are unremarkable. The pancreatic tail is obscured by bowel gas. Abdominal aorta and inferior vena cava: The visualized portions of the abdominal aorta and inferior vena cava are normal in caliber. There is no free fluid in the right upper quadrant. US/US abdomen flowers w elastography IMPRESSION: 1. Hepatic steatosis. 2. Adenomyomatosis of the gallbladder and multiple gallbladder polyps measuring up to 7 mm in size. Follow-up is recommended. The median shear wave velocity in the liver is 1.14 m/s, corresponding to a median liver stiffness of 4.10 kPa. The IQR/median value is 0.18. This is indicative of a poor quality data set, and the estimated liver stiffness may be unreliable. Findings are indicative of a normal elastography value with a low likelihood of severe fibrosis or cirrhosis. REFERENCE: Society of Radiologists in Ultrasound Liver Stiffness Thresholds (2020): LIVER STIFFNESS THRESHOLDS: *Shear wave velocity less than 1.3 m/s (Liver Stiffness equal or less than 5 kPa): High probability of being normal. *Shear wave velocity less than 1.7 m/s (Liver Stiffness less than 9 kPa): In the absence of other known clinical signs, rules out compensated advanced chronic liver disease. *Shear wave velocity between 1.7-2.1 m/s (Liver Stiffness 9-13 kPa): Suggestive of compensated advanced chronic liver disease but need further test for confirmation. *Shear wave velocity between 2.1-2.4 m/s (Liver Stiffness 13-17 kPa): Rules in compensated advanced chronic liver disease. *Shear wave velocity greater than 2.4 m/s (Liver Stiffness over 17 kPa): Suggestive of clinically significant portal hypertension. QUALITY OF DATA SET: *IQR/Median value equal or less than 0.15 implies a quality data set. *IQR/Median value over 0.15 implies a poor quality data set. SIGNIFICANT CHANGE FROM PRIOR EXAM: Significant change if liver stiffness measurement is 10% or greater from prior exam. OTHER CONSIDERATIONS: The stage of liver fibrosis may be overestimated in the setting of acute hepatitis, liver inflammation, elevated liver function tests, hepatic vascular congestion, obstructive cholestasis, non-fasting state, and infiltrative diseases such as amyloidosis and lymphoma. In some patients with NAFLD, the liver stiffness thresholds for compensated advanced chronic liver disease may be lower. In causes other than viral hepatitis and NAFLD, liver stiffness thresholds are not well established. Electronically signed by: Cameron Ramos MD 09/04/2024 11:21 AM EDT
--- OUTSIDE RECORDS SUMMARY | 2024-09-04 11:34 | XMS_ITS | Clinical Summary ---
Author Organization [facility] Address [address] [place] [address] Care Team Providers Care Fulling Mill Operator Name Role Phone Christopher Wilkerson MD Primary Care Provider Allergies No known active allergies Medications No known medications Social History Tobacco Use Types Packs/Day Years Used Date Smoking Tobacco: Never Smokeless Tobacco: Never Tobacco Cessation:Counseling Given: Not Answered Sex and Gender Information Value Date Recorded Sex Assigned at Not on file Legal Sex Male 6:56 PM EST Gender Identity Not on file Sexual [...] of 3 - 19+ 3-dose series) 2012 COVID-19 Vaccine ( - 2023-2 5 season) 2023 Influenza Vaccine 11/08/2024 HPV Vaccines Aged Out No longer eligi ble based on patient's age to complete this topic Pneumococcal Vaccine: Pediat debby (0-5 Years) and At-Risk Patients (6 to 49 Years) Aged Out No longer eligible b ased on patient's age to complete this topic [facility] Care Teams Fulling Mill Operator Relationship Specialty Start Date End Date Christopher Wilkerson MD [address] [place] [address] [place] [address] PCP - General Family Medicine 05/01/24
== END 2024-09-04 10:33 | disposition home or self-care (01) ==
LOC: HO.US 10:32
PROVIDERS: PCP Family Medicine; Visit Provider Family Medicine
DX: R74.8 Abnormal levels of other serum enzymes (principal)
CPT/HCPCS: 76705; 76981

== ENCOUNTER → 2024-09-04 10:36 | Outpatient (BNV) | payer OTHER, SELFPAY | PROVIDERS: PCP Family Medicine; Visit Provider Radiology Diagnostic Radiology | DX: K82.8 Other specified diseases of gallbladder (principal) | CPT/HCPCS: 76705; 76981 ==

== ENCOUNTER 2024-09-23 10:57 | Outpatient (REF) | payer OTHER, SELFPAY ==
--- OUTSIDE RECORDS SUMMARY | 2024-09-23 12:27 | XMS_ITS | Clinical Summary ---
Author Organization [facility] Address [address] [place] [address] Care Team Providers Care Natural Sciences Department Chair Name Role Phone Christopher Wilkerson MD Primary [...] patient's age to complete this topic Insurance [facility] Care Teams Natural Sciences Department Chair Relationship Specialty Start Date End Date Christopher Wilkerson MD [address] [place] [address] [place] [address] PCP - General Family Medicine 05/01/24
[2024-09-23 14:36] LABS: Alanine Aminotransferase 60 U/L (0-40); Alkaline Phosphatase 53 U/L (39-117); Anion Gap 12 (12-20); Aspartate Amino Transferase 28 U/L (5-37); Bilirubin Total 0.4 mg/dL (0.0-1.0); Blood Urea Nitrogen 15 mg/dL (9-16); Calcium 10.1 mg/dL (8.4-10.2); Carbon Dioxide 29 mmol/L (22-29); Chloride 104 mmol/L (96-108); Estimated Glomerular Filt Rate > 60; Glucose Random 87 mg/dL (60-115); Potassium 4.2 mmol/L (3.3-5.1); Sodium 141 mmol/L (135-145); Total Protein 7.3 g/dL (6.5-8.0)
== END 2024-09-23 10:58 | disposition home or self-care (01) ==
LOC: HO.WFDLDS 10:57
PROVIDERS: Visit Provider Family Medicine
DX: R74.8 Abnormal levels of other serum enzymes (principal)
CPT/HCPCS: 36415; 80053

== ENCOUNTER → 2024-09-27 16:30 | Outpatient (BNVA) | payer OTHER, SELFPAY | PROVIDERS: PCP Family Medicine; Visit Provider Family Medicine | DX: Z13.89 Encounter for screening for other disorder (principal) ==

== ENCOUNTER → 2024-09-27 16:30 | Outpatient (AMB) | payer OTHER, SELFPAY ==
--- NOTE | 2024-09-27 16:29 | A.OFFPC_ITS ---
Intake Visit Reasons: f/u elevated liver enzymes Intake Note: patient is scheduled to follow up on lab results. Police Sergeant Required: No Allergies No Known Allergies Allergy (Verified 09/27/24 16:31) Medication List - Last Reconciled 09/27/24 by Christopher Wilkerson MD polyethylene glycol 3350 (Miralax) 17 grams PO DAILY 14 days sildenafil 25 mg PO DAILY PRN Tobacco use date assessed: 05/14/24 Dental Screening Dental Screen Date: 05/14/24 HPI f/u elevated liver enzymes HPI Details 28 y/o male presents to f/u labs via tel emed. Labs drawn 09/23/24. Reviewed labs with pt. Elevated ALT of 60, which improved from prior. Ultrasound had shown hepatic steatosis. Had also seen gallbladder polyps. 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 Cognitive needs: No Hearing needs: No Vision needs: No Questionnaire Thrive Questionnaire Date Thrive assessed: 05/14/24 I am a: Patient What is your living situation today?: I have a steady place to live Within the past 12 months, did the food you bought not last and you didn't have the money to get more?: Never true Within the past 12 months, did you worry whether your food would run out before you got money to buy more?: Never true Do you have trouble paying for medicines?: No Do you have trouble getting transportation to medical appointments?: No Do you have trouble paying your heating and electricity bill?: No Do you have trouble taking care of your child, family member or friend?: No Do you have trouble with day-to-day activities such as bathing, preparing meals, shopping, managing finances, etc.?: No Are you currently unemployed and looking for a job?: No Are you interested in more education?: No Please select the resources that you would like help with: None Currently or been in a relationship where the following occur: No concerns reported THRIVE Score: 0 CÉSAR-7 AMB Questionnaire CÉSAR-7 Date CÉSAR - 7 assessed: 05/14/24 Source: Developed by Drs. Cameron Lebron, Avril Schulz, Kan Arroyo and colleagues, with an educational odalys from [employer]. Review of Systems Const Denies chills, Denies fatigue, Denies fever(s), Denies headache(s) and Denies weakness ENT Denies dizziness and Denies headache(s) Card Denies dyspnea Resp Denies cough, Denies dyspnea, Denies wheezing and Denies other (shortness of breath) Musc Denies numbness and Denies tingling Neuro Denies dizziness, Denies headache(s), Denies numbness, Denies tingling and Denies weakness Psych Denies anxiety and Denies depression Endo Denies fatigue Aller/Immun Denies wheezing Physical exam (Primary Care) Tobacco/Smoking Status: Tobacco use Status Tobacco use date assessed 05/14/24 09/27/24 16:31 Patient Tobacco Use Status Never used Tobacco 09/27/24 16:31 e-Cigarette/Vaping Use Never Used 09/27/24 16:31 Thrive Assessment: Date of Thrive Assessment Date Thrive assessed 05/14/24 09/27/24 16:31 Currently or been in a relationship where the following occur: No concerns reported Telehealth Telehealth Telehealth Platform: Telephone Location of provider rendering services: practice address Location of patient: address on file Patient Identification confirmed using: Name, : Yes Telehealth method: voice only Patient verbally consented to treatment: Yes Patient verbally consented to billing insurance company: Yes Patient informed of any privacy concerns related to visit: Yes Minutes spent on Phone/Video with Pt.: 8 Coding Level of Care Code Tele Est Pt Level 2 (19305) Diagnoses Elevated liver enzymes R74.8 Gall bladder polyp K82.4 Assessment & Plan Assessment & Plan (1) Elevated liver enzymes: Code(s): R74.8 - Abnormal levels of other serum enzymes Category: Medical Plan: Liver?enzymes?have?improved?but?still?elevated Ultrasound?showed?hepatic?steatosis?but?no?masses?in?the?liver Encouraged?weight?loss?and?good?hydration Will?continue?to?monitor (2) Gall bladder polyp: Code(s): K82.4 - Cholesterolosis of gallbladder Category: Medical Plan: Incidental?gallbladder?polyp?7?mm?in?size?seen?on?ultrasound?of?liver?and?gallbl adder Recommended?follow-up?which?I?have?ordered Orders: Orders Comprehensive Met. Panel Today R74.8 - Abnormal levels of other serum enzymes
== END ==
LOC: HO.HMCFM 16:30
PROVIDERS: PCP Family Medicine; Visit Provider Family Medicine
DX: R74.8 Abnormal levels of other serum enzymes (principal); K82.4 Cholesterolosis of gallbladder

== ENCOUNTER 2024-12-23 08:58 | Outpatient (REF) | payer OTHER, SELFPAY ==
[2024-12-23 11:55] LABS: Alanine Aminotransferase 68 U/L (0-40); Albumin Level 4.6 g/dL (3.5-5.0); Alkaline Phosphatase 52 U/L (39-117); Anion Gap 10 (12-20); Aspartate Amino Transferase 29 U/L (5-37); Blood Urea Nitrogen 16 mg/dL (9-16); Calcium 9.5 mg/dL (8.4-10.2); Carbon Dioxide 30 mmol/L (22-29); Chloride 105 mmol/L (96-108); Estimated Glomerular Filt Rate > 60; Potassium 4.0 mmol/L (3.3-5.1); Sodium 141 mmol/L (135-145); Total Protein 7.0 g/dL (6.5-8.0)
== END 2024-12-23 08:59 | disposition home or self-care (01) ==
LOC: HO.WFDLDS 08:58
PROVIDERS: Visit Provider Family Medicine
DX: R74.8 Abnormal levels of other serum enzymes (principal)
CPT/HCPCS: 36415; 80053

== ENCOUNTER 2024-12-30 11:22 | Outpatient (AMB) | payer OTHER, SELFPAY ==
--- NOTE | 2024-12-30 11:24 | A.OFFPC_ITS ---
Vital Signs 12/30/24 11:27 Height 6 ft 2.5 in Weight 263 lb 8 oz BMI 33.4 BP 132/72 Blood Pressure Location Lt brachial Position Sitting Respiration 13 Pulse 72 Pulse Source Pulse Oximeter Temp 97.3 F Temp Source Oral Pulse Oximetry (%) 98 Oxygen Delivery Method Room Air Intake Visit Reasons: f/u liver enzymes Intake Note: Follow up to review labs Credit Verification Clerk Required: No Allergies No Known Allergies Allergy (Verified 12/30/24 11:25) Tobacco use date assessed: 12/30/24 Dental Screening Dental Screen Date: 12/30/24 Did you have a dental visit in the last 12 months?: Yes Did you have a dental problem in the last 6 months where you did not have access to dental care?: No Was dental information given to patient?: Patient has dentist HPI f/u liver enzymes HPI Details 29 y/o male presents to f/u liver enzyme s. Labs drawn 12/23/24. Reviewed labs with pt. Elevated ALT of 68. AST 29. 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 Cognitive needs: No Hearing needs: No Vision needs: No Questionnaire Thrive Questionnaire Date Thrive assessed: 05/14/24 I am a: Patient What is your living situation today?: I have a steady place to live Within the past 12 months, did the food you bought not last and you didn't have the money to get more?: Never true Within the past 12 months, did you worry whether your food would run out before you got money to buy more?: Never true Do you have trouble paying for medicines?: No Do you have trouble getting transportation to medical appointments?: No Do you have trouble paying your heating and electricity bill?: No Do you have trouble taking care of your child, family member or friend?: No Do you have trouble with day-to-day activities such as bathing, preparing meals, shopping, managing finances, etc.?: No Are you currently unemployed and looking for a job?: No Are you interested in more education?: No Please select the resources that you would like help with: None Currently or been in a relationship where the following occur: No concerns reported THRIVE Score: 0 CÉSAR-7 AMB Questionnaire CÉSAR-7 Date CÉSAR - 7 assessed: 05/14/24 Source: Developed by Drs. Cameron Lebron, Avril Schulz, Kan Arroyo and colleagues, with an educational odalys from [employer]. Physical exam (Primary Care) Vital Signs: Last Vital Signs Temp 97.3 F 12/30/24 11:27 Pulse 72 12/30/24 11:27 Resp 13 12/30/24 11:27 BP 132/72 12/30/24 11:27 Pulse Ox 98 12/30/24 11:27 Oxygen Delivery Method Room Air 12/30/24 11:27 BMI result Body Mass Index 33.4 Tobacco/Smoking Status: Tobacco use Status Tobacco use date assessed 12/30/24 12/30/24 11:29 Patient Tobacco Use Status Never used Tobacco 12/30/24 11:25 e-Cigarette/Vaping Use Never Used 12/30/24 11:25 Thrive Assessment: Date of Thrive Assessment Date Thrive assessed 05/14/24 12/30/24 11:25 Currently or been in a relationship where the following occur: No concerns reported Coding Level of Care Code Est Pt Level 3 (58151) Diagnoses Elevated liver enzymes R74.8 Gall bladder polyp K82.4 Assessment & Plan Assessment & Plan (1) Elevated liver enzymes: Code(s): R74.8 - Abnormal levels of other serum enzymes Category: Medical Plan: Ongoing elevated liver enzymes which had decreased with weight loss but have plateaued somewhat. Ultrasound had shown hepatic steatosis and elastography was okay. Encouraged him to continue working at weight loss and good hydration Will continue to monitor (2) Gall bladder polyp: Code(s): K82.4 - Cholesterolosis of gallbladder Category: Medical Plan: Ultrasound for follow-up of gallbladder polyps and adenomyomatosis is ordered and should be scheduled in March. Will ask the office to check on the status of this If action is required will call patient otherwise we can review the results at his May physical
[2024-12-30 11:27] VITALS: BP 132/72; PULSE 72; RESP 13; TEMP 36.3; O2SAT 98; BMI 33.4
--- OUTSIDE RECORDS SUMMARY | 2024-12-30 14:02 | XMS_ITS | Encounter Summary ---
Author Organization [facility] Address [address] [place] [address] Care Team Providers Care Board Stacker Name Role Phone Christopher Wilkerson MD Primary Care Provider [phone] Encounter Details Date Type Department Care Team (Late st Contact Info) Description 05/01/2024 Scanned Document [address] [phone] Provider, Generic Social History Tobacco Use Types [...] on filedocumented in this encounter Care Teams Board Stacker Relationship Specialty Start Date End Date Christopher Wilkerson MD [address] [place] [address] [place] [id number] PCP - General Family Medicine 05/01/24 documented as of this encounter
--- OUTSIDE RECORDS SUMMARY | 2024-12-30 14:02 | XMS_ITS | Patient Health Record ---
Author Organization [facility] Address [address] [place] [id number] Support Name Relationship Address Phone Unavailable Emergency Contact Unknown Unavailabl e Tim Borrego Guarantor Unknown [phone] Reason For Referral No Information Plan Of Treatment No Information
--- OUTSIDE RECORDS SUMMARY | 2024-12-30 14:02 | XMS_ITS | Clinical Summary ---
Author Organization [facility] Address [address] [place] [address] Care Team Providers Care Bleacher [employer] Name Role Phone Christopher Wilkerson MD Primary [...] 74 05/01/2024 8:30 AM EST Temperature 36.7 C (98 F) 05/01/2024 8:30 AM EST Respiratory Rate 18 [...] of 3 - 19+ 3-dose series) 2012 HPV Vaccines (1 - 3-dose SCD M series) 2020 Influenza Vaccine 11/08/2024 COVID-19 Vaccine ( - 2023-2 5 season) 2024 Pneumococcal Vaccine: Pediat debby (0-5 Years) and At-Risk Patients (6 to 49 Years) Aged Out No longer eligible b ased on patient's age to complete this topic Insurance [facility] Care Teams Bleacher [employer] Relationship Specialty Start Date End Date Christopher Wilkerson MD [address] [place] [address] [place] [id number] PCP - General Family Medicine 05/01/24
--- OUTSIDE RECORDS SUMMARY | 2024-12-30 14:02 | XMS_ITS | Clinical Summary ---
Author Organization [facility] Address [address] [place] [address] Care Team Providers Care Spine Nurse Name Role Phone Jeferson Higgins MD Primary Care Provider [phone] Source Comments Please note that some or [...] so, obtain the minor's consent prior to disclosure.[facility] Social History Tobacco Use Types Packs/Day Years Used Date Smoking Tobacco: Never Assessed Sex and Gender Information Value Date Recorded Sex Assigned at Not on file Legal Sex Male 2:23 AM EST Gender Identity Not on file Sexual Orientation Not on file Plan of Treatment Not on file Insurance [employer] Care Teams Spine Nurse Relationship Specialty Start Date End Date Jeferson Higgins MD [facility] [place] [address] PCP - General 07/09/12
--- OUTSIDE RECORDS SUMMARY | 2024-12-30 14:03 | XMS_ITS ---
[facility] Name [facility] History of Medication Use Medication Directions Dispensed Refills Start Date End Date Stat us No known medications No known medications active Problems Problem Status Onset Date Problem Type Date of Resoluti on Source Dizziness active EncounterDiagnosisAct CCT Encounters Encounter Type Encounter Reason Primary Diagnosis Location Date Ambulatory Dizziness Dizziness [facility] 05/01/2024 Care Team Organization Name Specialty Phone Email Start Date End Da alize [employer] [facility]EN Primary Care 06/19/2024 06/26/2024 [employer] 05/01/2024 [employer] JENNIFER CONTRERAS Primary Care 05/01/2024
== END 2024-12-30 11:46 | disposition home or self-care (01) ==
LOC: HO.HMCFM 11:22
PROVIDERS: PCP Family Medicine; Visit Provider Family Medicine
DX: R74.8 Abnormal levels of other serum enzymes (principal); K82.4 Cholesterolosis of gallbladder

== ENCOUNTER 2025-04-04 09:15 | Outpatient (REF) | payer OTHER, SELFPAY ==
--- NOTE | ~2025-04-04 | US_ITS ---
CLINICAL HISTORY: K82.4 - Cholesterolosis of gallbladder US abdomen limited Comparison: None provided Findings: The visualized pancreas is normal. The aorta and inferior vena cava are normal caliber. The the appearance of the liver suggests fatty infiltration. There is a benign incidental left lobe 0.8 x 0.7 x 0.7 cm cyst. There is no intrahepatic bile duct dilatation. The common duct is 2.7 mm in diameter. There are multiple nonmobile gallbladder polyps, largest measuring 0.6 cm. The gallbladder is otherwise normal. There is no sonographic Parra sign. The main portal vein is antegrade. The right kidney is 10.6 cm in length. No ascites. IMPRESSION: 1. Hepatic steatosis. 2. Multiple gallbladder polyps This document has been electronically signed by: Hayden Amos MD on 04/05/2025 08:48:57
--- OUTSIDE RECORDS SUMMARY | 2025-04-04 09:18 | XMS_ITS | Encounter Summary ---
Author Organization [facility] Address [address] [place] [address] Care Team Providers Care Prosecuting Attorney Name Role Phone Christopher Wilkerson MD Primary Care Provider [phone] Encounter Details Date Type Department Care Team (Late st Contact Info) Description 05/01/2024 Scanned Document [address] [phone] Provider, Generic Social History Tobacco Use Types [...] on filedocumented in this encounter Care Teams Prosecuting Attorney Relationship Specialty Start Date End Date Christopher Wilkerson MD [address] [place] [address] Dr [place] [id number] PCP - General Family Medicine 05/01/24 documented as of this encounter
--- OUTSIDE RECORDS SUMMARY | 2025-04-04 09:18 | XMS_ITS | Patient Health Record ---
Author Organization [facility] Address [address] [place] [phone] Support Name Relationship Address Phone Unavailable Emergency Contact Unknown Unavailabl e Tim Borrego Guarantor Unknown [phone] Reason For Referral No Information Plan Of Treatment No Information
--- OUTSIDE RECORDS SUMMARY | 2025-04-04 09:18 | XMS_ITS | Clinical Summary ---
Author Organization [facility] Address [address] [place] [address] Care Team Providers Care White Sugar Pan Tank Operator Name Role Phone Jeferson Higgins MD Primary Care Provider [phone] Source Comments Please note that some or [...] obtain the minor's consent prior to disclosure.[facility] Social History Tobacco Use Types Packs/Day Years Used Date Smoking Tobacco: Never Assessed Sex and Gender Information Value Date Recorded Sex Assigned at Not on file Legal Sex Male 2:23 AM EST Gender Identity Not on file Sexual Orientation Not on file Plan of Treatment Not on file Insurance [employer] Care Teams White Sugar Pan Tank Operator Relationship Specialty Start Date End Date Jeferson Higgins MD [facility] [place] [address] PCP - General 07/09/12
--- OUTSIDE RECORDS SUMMARY | 2025-04-04 09:18 | XMS_ITS | Clinical Summary ---
Author Organization [facility] Address [address] [place] [address] Care Team Providers Care Roll Up Machine Operator Name Role Phone Christopher Wilkerson MD [...] - 19+ 3-dose series) 2012 Influenza Vaccine 11/08/2024 COVID-19 Vaccine ( - 2024-2 6 season) 2024 HPV Vaccines (No Doses Required) Completed Pneumococcal Vaccine: Pediat debby (0-5 Years) and At-Risk Patients (6 to 49 Years) Aged Out No longer eligible b ased on patient's age to complete this topic Insurance [employer] H[employer] Care Teams Roll Up Machine Operator Relationship Specialty Start Date End Date Christopher Wilkerson MD [address] [place] [address] Dr Pardo [place], [place] [id number] PCP - General Family Medicine 05/01/24
== END 2025-04-04 09:16 | disposition home or self-care (01) ==
LOC: HO.US 09:15
PROVIDERS: PCP Family Medicine; Visit Provider Family Medicine
DX: K82.4 Cholesterolosis of gallbladder (principal)
CPT/HCPCS: 76705

== ENCOUNTER → 2025-04-04 09:17 | Outpatient (BNV) | payer OTHER, SELFPAY | PROVIDERS: PCP Family Medicine; Visit Provider Specialist | DX: K82.4 Cholesterolosis of gallbladder (principal); K76.0 Fatty (change of) liver, not elsewhere classified | CPT/HCPCS: 76705 ==